=== PATIENT | male | born 1990 | race Caucasian/White ===

== ENCOUNTER 2018-12-23 13:51 | Emergency (ER) | payer OTHER ==
[~2018-12-23] VITALS: Ht 175.3 cm; Wt 86.2 kg
[2018-12-23 13:55] VITALS: BP 133/72
--- NOTE | 2018-12-23 14:02 | NUR ---
28 Y/O M TAMMY W/C/O BEING FOUND AT [facility], LAYING PRONE, NAKED. EMS STATES PT WAS AWAKE UPON ARRIVAL, AAOX3. PT ADMITS TO USING HEROINE TODAY. PT WAS RELEASED FROM [facility]AY 6 WEEKS AGO AND HAS BEEN USING HEROINE SINCE. PT AAOX3 UPON ARRIVAL, COOPERATIVE. PT DENIES N/V/D; AAOX3, PERRL. LUNGS CLEAR BL, BREATHING UNLABORED; BL PERIPHERAL PULSES PRESENT; BS ACTIVE X4, NO TENDERNESS TO PALPATION, NO HEPATOSPLENOMEGALLY PALPATED, RESONANT TO PERCUSSION; PT DENIES ANY FEVER, CP, SOB, OR COUGH AT THIS TIME; PT STATES 0/10 PAIN AT THIS TIME; VSS; PATIENT POSITIONED FOR COMFORT; HOB ELEVATED; BEDRAILS UP X2; BED DOWN. DENIES HX ONLY HEROINE ABUSE DENIES ALLERGIES
[2018-12-23] MEDS ORDERED: NACL 0.9% 1,000 ML IV ONE (14:49)
--- NOTE | 2018-12-23 14:57 | NUR ---
PT STATES HIS IV IS HURTING AND HE WANTS IT OUT AND DOES NOT WANT ANOTHER IV. IV REMOVED, TIP IN TACT
--- NOTE | 2018-12-23 15:00 | NUR ---
PT REFUSED EKG, NURSE AND PHYSICIAN MADE AWARE.
--- NOTE | 2018-12-23 15:02 | NUR ---
PT REFUSING EKG AT THIS TIME. PT REGUSED TO GIVE URINE.
--- NOTE | 2018-12-23 15:08 | NUR ---
PT REFUSING ALL TREATMENT AT THIS TIME. DR. DEWAYNE CHEEK AWARE, STATES ITS OKAY AND TO MONITOR PT.
--- NOTE | 2018-12-23 15:10 | NUR ---
PT REFUSED X-RAY
--- NOTE | 2018-12-23 16:06 | NUR ---
SPOKE TO PT AGAIN AT THIS TIME. PT STILL REFUSING, EKG, IV, AND URINE. PT AAOX4.
[2018-12-23 16:27] LABS: ALBUMIN 4.3 g/dL (3.4-5.0); ANION GAP 10.4 (8-16); ASPARTATE AMINOTRANSFERASE 26 U/L (15-37); CARBON DIOXIDE 31.9 mmol/L (21-32); CHLORIDE 100 mmol/L (98-107); GFR ARICAN-AMERICAN 113 mL/min (>90); GLUCOSE 98 mg/dL (74-106); POTASSIUM 4.3 mmol/L (3.5-5.1); SODIUM SERUM 138 mmol/L (136-145); TOTAL BILIRUBIN 0.2 mg/dL (0.0-1.0); UREA NITROGEN, BLOOD 15 mg/dL (7-18)
[2018-12-23 16:29] LABS: SALICYLATE < 2.8 mg/dL (2.8-20.0)
[2018-12-23 16:35] LABS: ACETAMINOPHEN < 0.5 ug/ml (10-30)
[2018-12-23 16:39] LABS: BASOPHILS % (AUTO) 0.3 % (0.0-2.0); EOSINOPHILS % (AUTO) 0.5 % (0.0-4.0); HEMATOCRIT 45.4 % (36-52); LYMPHOCYTES # (AUTO) 0.8 K/uL (2.0-11.5); MEAN CORPUSCULAR HEMOGLOBIN 31 pg (27-31); MEAN CORPUSCULAR HGB CONC 33 g/dL (33-37); MEAN CORPUSCULAR VOLUME 93.6 fL (80-94); MONOCYTES # (AUTO) 0.5 K/uL (0.8-1.0); NEUTROPHILS # (AUTO) 6.4 K/uL (1.8-7.7); NEUTROPHILS % (AUTO) 82.2 % (42.2-75.2); PLATELET COUNT (AUTO) 351 K/uL (140-450); RED BLOOD CELL COUNT(AUTO) 4.85 MIL/uL (4.20-6.10); RED CELL DISTRIBUTION WIDTH 14.5 % (11.6-13.7); WHITE BLOOD COUNT (AUTO) 7.7 K/uL (4.8-10.8)
--- NOTE | 2018-12-23 17:41 | NUR ---
PT RESTING IN BED IN RELAXED POSITION. AROUSABLE TO NAME. NO S/S OF DISTRESS NOTED.
[2018-12-23 19:16] VITALS: BP 155/55
--- NOTE | 2018-12-23 19:16 | NUR ---
Patient discharged with v/s stable. Written and verbal after care instructions given and explained. Patient verbalized understanding. Ambulatory with steady gait. All questions addressed prior to discharge. Advised to follow up with PMD. PT discharged with wheather appropriate clothing, provided food in ED, given homeless resource packet, and stated that he did not want bus pass.
== END 2018-12-23 19:16 | disposition home or self-care (01) ==
LOC: MED 13:51
DX: F11.20 Opioid dependence, uncomplicated (principal)
CPT/HCPCS: 36415; 80053; 82550; 84484; 85025; 99283; G0480; G0482; J7030; 93005